=== PATIENT | female | born 2005 | race Caucasian/White ===

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

== ENCOUNTER 2024-06-11 16:50 | Emergency (ER) | payer BC, SELFPAY ==
[2024-06-11 16:51] VITALS: BP 171/94; PULSE 110; RESP 15; TEMP 36.2; O2SAT 99; BMI 34.8
[2024-06-11 17:09] LABS: Mucous, Urine 0 SEEN /hpf (<or=2+)
[2024-06-11 17:20] LABS: Color, Urine Yellow (Yellow); Glucose, Dipstick Normal (Normal); Ketone-Dipstick Negative (Negative); Leukocyte Esterase-Dipstick Negative /ul (Negative); Nitrite-Dipstick Negative (Negative); Occult Blood-Urine 25 /ul (Negative); Protein-Dipstick 30 mg/dl (Negative); Specific Gravity, Urine 1.015 (1.002-1.030); Urine Bilirubin Dipstick Negative (Negative); Urine Clarity Sl. Cloudy (Clear); Urine Urobilinogen 1 mg/dl (Normal); Urine pH 6.5 (5.0 - 8.0)
[2024-06-11] MEDS: 0.9% Normal Saline (1000mL) 1,000 ML 999 ML IV (17:23)
[2024-06-11 17:36] LABS: Absolute Lymphocyte Count 4.18 X10^3/uL (0.83-4.51); Absolute Neutrophil Count 7.6 X10^3/uL (2.0-7.7); Basophil# 0.12 X10^3/uL; Basophil% 0.9 % (0-1); Eosinophil# 0.26 X10^3/uL; Hematocrit 38.7 % (37-47); Hemoglobin 13.1 g/dL (12.0-15.0); Lymphocyte # 4.18 X10^3/ul (0.83-4.51); Lymphocyte % 31.7 % (19-41); Mean Corp Hgb Conc 33.9 g/dL (32-36); Mean Corpuscular Hgb 30.6 pg (27.0-32.0); Mean Corpuscular Volume 90.4 fL (81-99); Mean Platelet Vol. 10.3 fl (6.2-12.0); Monocyte# 0.99 X10^3/uL; Monocyte% 7.5 % (0-10); NRBC Flagged by Analyzer 0 % (0-5); Neutrophil # 7.57 X10^3/uL (2.7-7.7); Neutrophil % 57.5 % (47-70); Platelet Count 408 K/mm3 (150-450); RBC Distribution Width SD 39.5 fl (35.1-43.9); Red Blood Count 4.28 M/mm3 (4.2-5.4); White Blood Count 13.2 K/mm3 (4.4-11.0)
--- NOTE | 2024-06-11 17:41 | EX.ED.DYSGE1 ---
HPI History of Present Illness Chief Complaint: Abd Pain Narrative Narrative: Patient is a 19-year-old female with no known significant past medical history who presented to the emergency department from urgent care with concern for appendicitis. Patient states that she developed abdominal pain earlier today with few episodes of nausea vomiting that been progressively worsening. States that they went to urgent care and they were advised to come here as they were concerned that she may have appendicitis. Patient denies any previous abdominal surgeries denies any recent sick contacts. Patient rates her pain an 8 out of 10. [facility] Medical History No active medical problems Home Medications ?Medication ?Instructions ?Recorded ?Last Taken ?Type prednisone 5 mg tablets in a dose See Rx Instructions PO PER PKG DIR 11/15/23 Unknown Rx pack #21 tabs Allergy/AdvReac Type Severity Reaction Status Date / Time No Known Allergies Allergy Verified 06/11/24 16:51 Family History no significant family his Surgical History History of hand surgery Social History Smoking Status: Never smoker alcohol intake: never substance use type: does not use ROS ROS ED ROS Narrative Constitutional: Denies any fevers, chills, headaches, lightness, dizziness Eyes: Denies change in vision double vision blurry vision Cardiovascular: Denies chest pain or palpitations Respiratory: No shortness of breath Abdomen: Complains of abdominal pain as noted above denies any nausea vomiting diarrhea currently : Denies any urinary symptoms Neurological: Denies any numbness, weakness, tingling Musculoskeletal: Denies back pain Skin: Denies rashes or lesions EXAM Physical Exam Narrative Exam Narrative: General: Patient lying in bed rest comfortably did not appear to be acute distress Head: Atraumatic, normocephalic Eyes: PERRL bilateral, EOMI bilateral, no conjunctival injection noted Neck: Soft, supple, trachea midline Cardiovascular: Regular rate and rhythm no murmurs gallops rubs noted Respiratory: Clear to auscultation bilaterally Abdomen: Soft, nondistended, tender to palpation the right lower quadrant no rebound or guarding on exam Extremities: +5/5 strength noted in the bilateral upper and lower extremities, radial pulses +2/4 in the bilateral extremities, no pedal edema no exam Neurological: Patient following commands knew that she was at [facility] year is 2024 Skin: Warm, dry, intact no rashes or lesions noted Const Vital Signs: 06/11/24 16:51 06/11/24 18:53 Temperature 97.2 F L 97.7 F L Temperature Source Temporal Oral Pulse Rate 110 H 90 Respiratory Rate 15 18 Blood Pressure 171/94 H 139/80 H Blood Pressure Mean 119 99 Pulse Ox 99 98 Oxygen Delivery Method Room Air Room Air MDM MDM MDM Narrative Medical decision making narrative: Patient is a 19-year-old female who presented to the emergency department with a chief complaint of right lower quadrant abdominal pain and concern for appendicitis. On the differential diagnose includes Melamin to appendicitis, diverticulitis, ectopic , ovarian cyst, UTI. Once workup is obtained reviewed she will be reevaluated. Patient be given IV fluids morphine Zofran Patient CBC was reviewed and was significant for leukocytosis of 13,000, hemoglobin 13.1, plate count was noted be 408. Patient's sodium normal 140, potassium normal 3.6, creatinine normal at 0.51. Patient's AST and ALT were 8 and 22 respectively. Patient lipase noted to be 22, test was negative. Patient's urinalysis reviewed and did not reveal any evidence of infection. Patient CT abdomen pelvis with IV contrast reviewed showed mild intrapelvic fluid most suspicious for ovarian follicle rupture no discrete visible follicle or cyst. Normal gas-filled appendix. Mild mesenteric adenopathy uncertain chronicity. Hepatomegaly and mild hypodense fatty liver. On reevaluation the patient she is feeling better she would like to go home at this point in time I did discuss results with the patient and mother at bedside. At 1930 4 repeat abdominal exam was performed and she had no tenderness to palpation. She is advised to follow-up with her family doctor in outpatient setting and return with worsening symptoms or other concerns she is agreeable this plan would like to go home at this point time all question concerns answered she is discharged home in stable condition. Lab Data Labs: Laboratory Results - last 24 hr 06/11/24 06/11/24 06/11/24 17:01 17:02 17:25 WBC 13.2 H RBC 4.28 Hgb 13.1 Hct 38.7 MCV 90.4 MCH 30.6 MCHC 33.9 RDW Std Deviation 39.5 RDW Coeff of Mendy 12.0 Plt Count 408 MPV 10.3 Immature Gran % (Auto) 0.400 Neut % (Auto) 57.5 Lymph % (Auto) 31.7 [place] % (Auto) 7.5 Eos % (Auto) 2.0 Baso % (Auto) 0.9 Absolute Neuts (auto) 7.6 Absolute Lymphs (auto) 4.18 Nucleated RBC % 0 Sodium 140 Potassium 3.6 Chloride 108 H Carbon Dioxide 25.0 Anion Gap 7 BUN 8 Creatinine 0.51 L Estim Creat Clear Calc 193.48 Est GFR (MDRD) Af Amer 197 Est GFR (MDRD) Non-Af 163 BUN/Creatinine Ratio 15.7 Glucose 125 H Calcium 9.0 Total Bilirubin 0.70 AST 8 L ALT 22 Alkaline Phosphatase 70 Total Protein 7.4 Albumin 4.1 Globulin 3.3 Albumin/Globulin Ratio 1.2 Lipase 22 Serum , Qual NEGATIVE Urine Color Yellow Urine Clarity Sl. Cloudy Urine pH 6.5 Ur Specific [place] 1.015 Urine Protein 30 H Urine Glucose (UA) Normal Urine Ketones Negative Urine Occult Blood 25 H Urine Nitrite Negative Urine Bilirubin Negative Urine Urobilinogen 1 H Ur Leukocyte Esterase Negative Urine RBC 0-5 SEEN Urine WBC 0-5 SEEN Ur Squamous Epith Cells 5-10 SEEN Amorphous Sediment 1+ URATE Urine Bacteria RARE Urine Mucus 0 SEEN Radiography Diagnostic Testing: Clinical Impression(s) from Imaging Studies Abdomen/Pelvis CT 06/11/24 17:46 IMPRESSION: 1. Mild intrapelvic fluid. Most suspicious for ovarian follicle rupture. No discrete visible follicle or cyst. 2. Normal gas-filled appendix. 3. Mild mesenteric adenopathy, uncertain chronicity. 4. Hepatomegaly and mildly hypodense fatty liver. Electronically Signed: Veronica Garcia MD at 19:09 EST , Discharge Plan Triage Chief Complaint: Abd Pain ED Provider: Aly Garcia Dx/Rx/DC Orders Clinical Impression: Abdominal pain Prescriptions: No Action prednisone 5 mg tablets,dose pack See Rx Instructions PO PER PKG DIR Qty: 21 0RF Rx Instructions: PO PER PKG DIR Primary Care Provider: Zaina Topete Referrals: Zaina Topete MD [Primary Care Provider] - Activity Restrictions/Additional Instructions: Follow with your doctor in outpatient setting. Return with worsening symptoms or any concerns. Use ibuprofen for pain control as well as Tylenol. Your CT did not show evidence of appendicitis. Print Language: Divehi Disposition Disposition: Home, Self Care
--- NOTE | 2024-06-11 17:46 | CT_ITS ---
EXAM: CT ABDOMEN AND PELVIS WITH INTRAVENOUS CONTRAST CLINICAL INDICATION: RLQ pain TECHNIQUE: Helically acquired images were obtained of the abdomen and pelvis with intravenous contrast. This CT exam was performed using one or more of the following dose reduction techniques: automated exposure control, adjustment of the mA and/or kV according to patient size, and/or use of iterative reconstruction technique. CONTRAST: IV 100mL Isovue-370 RADIATION DOSE: CTDIvol = 13.86 mGy, DLP = 1137.81 mGy-cm. COMPARISON: No relevant prior studies available. FINDINGS: LOWER THORAX: Moderate stool in much of the proximal half of the colon, mild gas and stool in the distal colon. Minimal groundglass opacity in the medial right lung base and posterior left lung base, likely minimal atelectasis. No cardiomegaly. No significant pericardial effusion. ABDOMEN: LIVER: Mild hepatomegaly versus prominent Deerk''s lobe, right lobe of liver is 18.7 cm craniocaudal with mild low-attenuation typical of mild fatty infiltration. GALLBLADDER AND BILE DUCTS: Unremarkable. No calcified gallstones. No gallbladder distention or wall edema. No intra- or extrahepatic biliary ductal dilation. PANCREAS: Unremarkable. No focal cystic or solid mass. SPLEEN: Unremarkable. Normal size without focal cystic or solid mass. ADRENALS: Unremarkable. No nodules. KIDNEYS AND URETERS: Unremarkable. Normal renal size and position. No hydronephrosis. STOMACH AND BOWEL: Unremarkable. No stomach or bowel distention. No focal inflammatory change. PELVIS: APPENDIX: Normal gas-filled appendix is seen on axial images 80 through 93. BLADDER: Unremarkable. REPRODUCTIVE: Unremarkable as visualized. No mass. ABDOMEN and PELVIS: INTRAPERITONEAL SPACE: Mild intrapelvic fluid in the bilateral pelvis. No free air. BONES/JOINTS: Unremarkable. No suspicious lytic or blastic abnormality. SOFT TISSUES: Unremarkable. No discrete abdominal or pelvic wall hernia. VASCULATURE: Unremarkable. Abdominal aorta is non-dilated. LYMPH NODES: Mild mesenteric adenopathy including the right lower quadrant. Uncertain chronicity. Mildly prominent bilateral inguinal lymph nodes, nonspecific. CT/Abdomen/Pelvis W IV Cont ONLY IMPRESSION: 1. Mild intrapelvic fluid. Most suspicious for ovarian follicle rupture. No discrete visible follicle or cyst. 2. Normal gas-filled appendix. 3. Mild mesenteric adenopathy, uncertain chronicity. 4. Hepatomegaly and mildly hypodense fatty liver. Electronically Signed: Veronica Garcia MD at 19:09 EST ,
[2024-06-11 17:54] LABS: Internal QC Validated? YES +Cl - CLEAR BKGD; Pregnancy, Serum, hCG Quali. NEGATIVE Negative
[2024-06-11 18:02] LABS: ALB/GLOB Ratio 1.2 RATIO (0.9-2.4); AST(SGOT) 8 U/L (15-37); Alanine Aminotransfer ALT/SGPT 22 U/L (13-56); Albumin, Serum 4.1 g/dL (3.2-5.0); Alkaline Phosphatase 70 U/L (45-117); Anion Gap 7 (5-15); BUN 8 mg/dL (7-18); BUN/Creat Ratio 15.7 RATIO (10-20); Chloride 108 mmol/L (98-107); Creatinine, Serum 0.51 mg/dL (0.55-1.02); EST Glomerular Filtration Rate 163 mL/min (>60); Est Glom Filt Rate - Afr Amer 197 mL/min (>60); Estimated Creatinine Clearance 193.48 ml/min; Globulin 3.3 g/dL (2.2-4.2); Glucose 125 mg/dL (74-106); Lipase 22 U/L (13-75); Potassium 3.6 mmol/L (3.5-5.1); Protein, Total 7.4 g/dL (6.4-8.2); Sodium Level 140 mmol/L (136-145)
[2024-06-11] MEDS: Ondansetron 4 MG/2 ML Vial IV (18:05)
[2024-06-11] MEDS: Morphine 4 MG/ML Syringe IV (18:05)
[2024-06-11 18:19] LABS: Amorphous Sediment 1+ URATE; Bacteria RARE /hpf (None Seen); Red Blood Cells-Urine 0-5 SEEN /hpf (0-5); Squamous Epithelial Cells - UA 5-10 SEEN /hpf (5-10); White Blood Cells 0-5 SEEN /hpf (0-5)
[2024-06-11 18:53] VITALS: BP 139/80; PULSE 90; RESP 18; TEMP 36.5; O2SAT 98
[2024-06-11 19:56] VITALS: BP 131/77; PULSE 71; RESP 18; TEMP 36.7; O2SAT 99
== END 2024-06-11 19:57 | disposition home or self-care (01) ==
PROVIDERS: Emergency Provider Emergency Medicine; PCP Pediatrics; Visit Provider Emergency Medicine
DX: R10.31 Right lower quadrant pain (principal)